=== PATIENT | male | born 1940 | race Caucasian/White ===

== ENCOUNTER 2022-02-20 08:40 | Day surgery (SDC) | payer MEDICARE, MEDICAID ==
[~2022-02-20] VITALS: Ht 165.1 cm; Wt 61.3 kg
[~2022-02-20 08:40] MED LIST: AMLO-257 PO; ATOR40TA28 PO; CARV3 PO; CHOL25TA4 PO; CLOP75TA60 PO; CYAN100T45 PO; DOXY-354 PO; ENAL10TA18 PO; FAMO20 PO; FERR325T27 PO; LISI-892 PO; METO-296 PO; NITR0.4T52 SL; OMEP20 PO; PANT-31 PO; SODIUM CHLORIDE 0.9% 1,000 ML IV SCH; SODIUM CHLORIDE 0.9% 1,000 ML ONE
[2022-02-20] MEDS ORDERED: ASPIRIN 81 MG CHEWABLE TABLET PO ONE (10:30)
[2022-02-20] MEDS ORDERED: DiphenhydrAMINE HCL 50 MG CAPSULE PO ONE (10:30)
[2022-02-20] MEDS ORDERED: DIAZEPAM 5 MG TABLET PO ONE (10:30)
[2022-02-20] MEDS ORDERED: LIDOCAINE/PF 1% 30 ML VIAL ONE (12:30)
[2022-02-20] MEDS ORDERED: IOHEXOL 300 MG/ML 50 ML VIAL ONE (12:30)
[2022-02-20] MEDS ORDERED: IOHEXOL 300 MG/ML 100 ML VIAL ONE (12:30)
[2022-02-20] MEDS ORDERED: IOHEXOL 300 MG/ML 150 ML VIAL ONE (12:30)
[2022-02-20] MEDS ORDERED: HEPARIN SODIUM 1000 UNITS/NS 1,000 ML ONE (12:30)
[2022-02-20] MEDS ORDERED: SODIUM BICARBONATE 50 MEQ/50 ML VIAL ONE (12:30)
[2022-02-20] MEDS ORDERED: FentaNYL CITRATE PF 100 MCG/2 ML VIAL ONE (12:44)
[2022-02-20] MEDS ORDERED: MIDAZOLAM HCL 2 MG/2 ML VIAL ONE (12:45)
[2022-02-20 12:48] VITALS: BP 140/89
[2022-02-20] MEDS ORDERED: FentaNYL CITRATE PF 100 MCG/2 ML VIAL IVP ONE (13:00)
[2022-02-20] MEDS ORDERED: IOHEXOL 300 MG/ML 150 ML VIAL IARTER ONE (13:00)
[2022-02-20] MEDS ORDERED: HEPARIN SODIUM 1000 UNITS/NS 1,000 ML IARTER ONE (13:00)
[2022-02-20] MEDS ORDERED: MIDAZOLAM HCL 2 MG/2 ML VIAL IVP ONE (13:00)
[2022-02-20] MEDS ORDERED: LIDOCAINE 1% 30 ML/SOD BICARB 8.4% 4 ML SQ ONE (13:00)
[2022-02-20] MEDS ORDERED: LORA10TA7 PO (13:19)
[2022-02-20] MEDS ORDERED: CYAN500T56 PO (13:19)
[2022-02-20] MEDS ORDERED: LISI-893 PO (13:19)
[2022-02-20 13:38] VITALS: BP 125/80
== END 2022-02-20 18:03 | disposition home or self-care (01) ==
LOC: CATHLAB 08:40
PROVIDERS: ATTEND Internal Medicine Interventional Cardiology
DX: R94.39 Abnormal result of other cardiovascular function study (principal); I25.10 Atherosclerotic heart disease of native coronary artery without angina pectoris; E78.5 Hyperlipidemia, unspecified; I10 Essential (primary) hypertension; Z95.5 Presence of coronary angioplasty implant and graft; Z86.73 Personal history of transient ischemic attack (TIA), and cerebral infarction without residual deficits; Z98.890 Other specified postprocedural states; Z79.899 Other long term (current) drug therapy
CPT/HCPCS: 93005; 93458; 99152; C1760; J1644; J2250; J3010; J3490 ×2; J7030; Q9967